=== PATIENT | male | born 1940 | race Caucasian/White ===

== ENCOUNTER 2016-07-07 21:26 | Observation (INO) | payer MEDICARE, OTHER ==
[~2016-07-07] VITALS: Ht 168.9 cm; Wt 67.4 kg
--- NOTE | ~2016-07-07 | HEMODYNAMI ---
PATIENT:ISA MCCARTHY MEDICAL RECORD: [id number] : 38 [facility] [id number] ADMISSION DATE: 07/07/16 Generatedon:07/08/201612:56 Patient name: ISA MCCARTHY Patient #: [id number] SSN: : 1940 Date of study: 07/08/2016 Page: Of Hemodynamic Procedure Report Patient Data Patient Demographics Procedure consent was obtained First Name: ISA Gender: Male Last Name: FABIO : 1940 Middle Initial: W Age: 75 year(s) Patient #: [id number] Race: Unknown Additional ID: [id number] Contact details Address: [address] [place] [address] State: [place] City: [place] Zip code: [address] Past Medical History Allergies Allergen Reaction Date Comments Reported Other 07/08/2016 morphine,sulfa,doxcycline allergy Admission Admission Data Admission Date: 07/07/2016 Admission Time: 23:47 Admit Source: Other Insurance Payor: Private Room #: D.2121 health insurance, Medicare Height (in.): 66.5 BSA: 1.77 (m2) Height (cm.): 168.91 BMI: 23.62 (kg/m2) Weight (lbs.): 148.59 Weight (kg.): 67.4 Lab Results Lab Result Date: 07/08/2016 Lab Result Time: 11:36 Biochemistry Name Units Result Min Max Creatinine mg/dl 1.5 --(----)-* 0.6 1.3 CBC Name Units Result Min Max Hemoglobin g/dl 16.1 --(--*-)-- 13.5 17.5 Procedure Procedure Types Cath Procedure Diagnostic Procedure [facility] w/Coronaries Procedure Description Procedure Date Procedure Date: 07/08/2016 Procedure Start Time: 12:41 Procedure End Time: 12:51 Procedure Staff Name Function Zbigniew Uriostegui MD Performing Physician Merrill Ling RT Scrub Matthew Rodriguez RN Nurse Jacques Whitman RN Hadoop Infrastructure Architect Manish Valladares RT Monitor Procedure Data Cath Procedure Fluoroscopy Diagnostic fluoroscopy Total fluoroscopy Time: 1.3 time: 1.3 min min Diagnostic fluoroscopy Total fluoroscopy dose: 422 dose: 422 mGy mGy Contrast Material Contrast Material Type Amount (ml) Isovue 300 67 Entry Location Entry Primary Successful Side Size Upsize Upsize Entry Closure Succes sful Closure Location (Fr) 1 (Fr) 2 (Fr) Remarks Device Remarks Femoral Right 5 Fr Exoseal artery Estimated blood loss: 5 ml Diagnostic catheters Device Type Used For End Catheter Placement Cordis 5Fr JL 4.0 Procedure Catheter (MP) Cordis 5Fr 3DRC Catheter Procedure (MP) Cordis 5Fr Pigtail Procedure Catheter (MP) Procedure Medications Medication Administration Route Dosage Oxygen NC 2 l/min Lidocaine 2% added to field 20 Heparin Flush Bag added to field 2 bags (1000units/500ml NS) 0.9% NaCl I.V. 100 ml/hr Versed I.V. 1 mg Fentanyl I.V. 50 mcg Versed I.V. 0.5 mg Fentanyl I.V. 25 mcg Hemodynamics Rest BSA: 1.77 (m2) HGB: 16.1 (g/dl) O2 Consumption: Estimated: 212.43 (ml/min) O2 Co nsumption indexed: Estimated:120.02 (ml/min/m) Heart Rate: 84 (bpm) Pressure Samples Time Site Value (mmHg) Purpose Heart Use Rate(bpm) 12:47 LV 134/6,12 Snapshot 76 12:47 AO 136/55(89) Pullback 77 12:47 LV 135/11,13 Pullback 77 Gradients Valve Time Site 1 Site 2 Mean SEP/DFP Peak To Heart Use (mmHg) (sec/min) Peak Rate (mmHg) (bpm) Aortic 12:47 LV AO 0 10 0 77 135/11,13 136/55(89) Calculations Valve P-P Mean Valve Index Valve Source Name Gradient Area Flow (cm2) Aortic 0 0 0 0 Snapshots Pre Cath Intra NCS Post Cath Vital Signs Time Heart Resp SPO2 etCO2 NU5szch NIBP (mmHg) Rhythm Pain Sedation Rate (ipm) (%) (mmHg) (mmHg) Status Level (bpm) 12:13:42 76 19 94 0 0 173/80(137) NSR 0 (11) 10(A) , No pain 12:18:06 81 18 94 0 0 173/84(130) NSR 0 (11) 10(A) , No pain 12:22:32 77 15 96 0 0 167/86(131) NSR 0 (11) 10(A) , No pain 12:26:57 81 17 97 0 0 169/79(133) NSR 0 (11) 10(A) , No pain 12:31:23 76 17 97 0 0 153/74(124) NSR 0 (11) 10(A) , No pain 12:35:45 72 18 96 0 0 142/69(107) NSR 0 (11) 10(A) , No pain 12:40:03 72 18 96 0 0 143/68(116) NSR 0 (11) 9(A) , No pain 12:44:19 74 22 96 0 0 140/77(106) NSR 0 (11) 9(A) , No pain 12:48:37 76 25 96 0 0 135/70(110) NSR 0 (11) 10(A) , No pain Medications Time Medication Route Dose Verified Delivered Reason Notes Effe ctiveness by by 12:27:40 Oxygen NC 2 Zbigniew Buffie used for l/min St. Claudio Rodriguez RN procedure 12:27:50 Lidocaine 2% added 20ml Zbigniew Zbigniew for local to vial [facility] anesthetic field MD EUGENE 12:27:56 Heparin Flush added 2 Zbigniew Zbigniew used for Bag to bags [facility] procedure (1000units/500ml field MD EUGENE NS) 12:28:06 0.9% NaCl I.V. 100 Zbigniew Buffie Per ml/hr [facility]. Claudio Rodriguez RN physician 12:39:18 Versed I.V. 1 mg Zbigniew Buffie for [facility]. Claudio Rodriguez RN sedation 12:39:24 Fentanyl I.V. 50 Zbigniew Buffie for mcg [facility] Claudio Rodriguez RN sedation 12:43:48 Versed I.V. 0.5 Zbigniew Buffie for mg [facility] Claudio Rodriguez RN sedation 12:43:52 Fentanyl I.V. 25 Zbigniew Levonie for mcg [facility] Claudio Rodriguez RN sedation Procedure Log Time Note 11:15:24 Jacques Whitman RN sent for patient. Start room use. 11:56:26 Informed consent obtained and on chart 11:57:13 Time tracking: Regular hours 11:57:19 Plan of Care:Hemodynamics will remain stable., Cardiac rhythm will remain stable., Comfort level will be maintained., Respiratory function will remain adequate., Patient/ family verbilizes understanding of procedure., Procedure tolerated without complication., Recovers from procedure without complications.. 12:04:27 Admit Source: Other 12:04:30 Patient Weight : 148.59 lbs 12:04:36 Patient Height : 66.5 inches 12:05:35 Patient received from Med II to CCL 2 Alert and oriented. Tansferred to table in Supine position. 12:05:37 Warm blankets applied, and tori hugger turned on for patient comfort. 12:05:37 Correct patient and procedure confirmed by team. 12:05:38 ECG and BP/O2 sat monitors applied to patient. 12:12:27 Vital chart was started 12:23:41 H&P Date Dictated: 07/07/2016 Within 30 days and on chart.. 12:23:43 Pre-procedure instructions explained to patient. 12:23:43 Pre-op teaching completed and patient verbalized understanding. 12:23:45 Family in patients room. 12:23:46 Patient NPO since Midnight. 12:24:13 Patient allergic to Other allergymorphine,sulfa,doxcycline 12:24:57 Is the patient allergic to Iodine/contrast media? No. 12:24:58 Is patient on blood thinner?Yes 12:25:03 ACC The patient was administered the following blood thiners within the last 24 hours: ACCPradaxa 12:25:04 Patient diabetic? Yes. 12:25:05 If diabetic: On Metformin? Yes 12:25:08 If on Metformin: Last Dose? 07/07/2016 12:25:11 Previous problem with sedation/anesthesia? No ? 12:25:12 Snore? Yes 12:25:13 Sleep apnea? No 12:25:14 Deviated septum? No 12:25:15 Opens mouth fully? Yes 12:25:16 Sticks out tongue? Yes 12:25:17 Airway obstruction? No ? 12:25:21 Dentures? Yes In tight 12:25:25 Pre procedure: right dorsailis pedis pulse 1+ Palpable, but thready & weak; easily obliterated 12:25:28 Patient pain scale 0/10 ?. 12:25:32 IV patent on arrival in right hand with 0.9% NaCl at [facility]. 12:: Lab Result : Hemoglobin 16.1 g/dl 12:: Lab Result : Creatinine 1.5 mg/dl 12::30 Lab results completed and on chart. 12::33 Right groin area was prepped with chlora-prep and draped in sterile fashion 12:: Alarms reviewed by R. N. 12:: Sharps counted by scrub and verified by R.N. 12::38 Use device set Femoral Dx 12::39 Tegaderm 4 x 4 opened to sterile field. 12::40 Acist Manifold opened to sterile field. 12::40 Acist Hand Control opened to sterile field. 12::41 Acist Syringe opened to sterile field. 12::42 Bag Decanter opened to sterile field. 12::42 Cardinal Cath Pack opened to sterile field. 12::43 Terumo 5Fr [place] Sheath opened to sterile field. 12::44 St Alexandru 260cm J .035 wire opened to sterile field. 12::44 Cordis Infinity 5Fr Multipack catheter opened to sterile field. 12::53 Baseline sample Acquired. 12::55 Rhythm: sinus rhythm 12::57 Full Disclosure recording started 12:27:00 Physician paged 12:27:40 Oxygen 2 l/min NC was given by Matthew Rodriguez RN; used for procedure; 12::50 Lidocaine 2% 20ml vial added to field was given by Zbigniew Uriostegui MD; for local anesthetic; 12:27:56 Heparin Flush Bag (1000units/500ml NS) 2 bags added to field was given by Zbigniew Uriostegui MD; used for procedure; 12:28:06 0.9% NaCl 100 ml/hr I.V. was given by Matthew Rodriguez RN; Per physician; 12::34 Physician arrived 12::34 --------ALL STOP TIME OUT------ 12:37:35 Final Timeout: patient, procedure, and site verified with staff and physician. All members of the team are in agreement. 12:37:37 Right groin site verified by team. 12:37:40 Physical assessment completed. ASA score P 3 - A patient with severe systemic disease as per Zbigniew Uriostegui MD. 12:37:44 Sedation plan: IV Moderate Sedation Versed, Fentanyl 12:39:18 Versed 1 mg I.V. was given by Matthew Rodriguez RN; for sedation; 12:39:24 Fentanyl 50 mcg I.V. was given by Matthew Rodriguez RN; for sedation; 12::44 Procedure started. 12:41:46 Local anesthetic to right femoral artery with Lidocaine 2% by Zbigniew Uriostegui MD.INITIAL ACCESS ONLY 12:41:59 A 5 Fr sheath was inserted into the Right Femoral artery 12:43:19 A Cordis 5Fr JL 4.0 Catheter (MP) was advanced over the wire and used for Procedure. 12:43:47 LCA angiography performed. 12:43:48 Versed 0.5 mg I.V. was given by Matthew Rodriguez RN; for sedation; 12:43:52 Fentanyl 25 mcg I.V. was given by Matthew Rodriguez RN; for sedation; 12:44:42 Catheter exchanged over wire. 12:44:48 A Cordis 5Fr 3DRC Catheter (MP) was advanced over the wire and used for Procedure. 12:45:47 RCA angiography performed. 12:46:00 Catheter exchanged over wire. 12:46:09 A Cordis 5Fr Pigtail Catheter (MP) was advanced over the wire and used for Procedure. 12:47:20 LV gram done using GOMEZ 12:47:25 Injector settings: Ml/sec: 10, Volume: 20, 12:47:34 EF : 55 % 12:48:00 Cordis 5Fr Exoseal opened to sterile field. 12:48:19 Sheath removed intact; hemostasis achieved with Exoseal to the Right Femoral artery. 12:48:21 Procedure ended.(Physican Out) 12:48:47 Fluoroscopy time 01.30 minutes. 12:49:00 Flurop Dose total: 422 12:49:00 Fluoroscopy dose: 422 mGy 12:49:04 Contrast amount:Isovue 300 67ml. 12:49:06 Sharps counted by scrub and verified by R.N. 12:49:09 Insertion/operative site no bleeding no hematoma. 12:49:18 Post-op/insertion site Right Femoral artery dressed using a 4 x 4 and Tegaderm. 12:49:29 Post right femoral artery:stable, soft, clean and dry 12:49:33 Post Procedure Pulses reassessed and unchanged 12:49:36 Post-procedure physical assessment completed. ASA score P 3 - A patient with severe systemic disease as per Zbigniew Uriostegui MD. 12:49:38 Post procedure rhythm: unchanged. 12:49:41 Estimated blood loss: 5 ml 12:49:48 Post procedure instruction explained to patient.Patient verbalizes understanding. 12:49:49 Patient needs reinforcement of post procedure teaching. 12:50:38 Procedure and supply charges have been captured, reviewed, submitted and are correct. 12:51:14 Vital chart was stopped 12:51:15 See physician's report for complete and final results. 12:51:17 Report given to PCU. 12:51:19 Patient transfered to PCU with Stretcher. 12:51:22 Procedure ended. 12:51:22 Full Disclosure recording stopped 12:52:00 End room use (Document Last) 12:53:05 Insurance Payor : Private health insurance, Medicare Device Usage Item Name Manufacture Quantity Catalog Hospital Part Current Minimal Lo t# / Number Charge Number Stock Stock Serial# Code Tegaderm 1 [id number] 193458 [id number] 5 4 x 4 Acist Acist 1 63251 519388 635074 601160 5 Manifold Medical Systems Inc Acist Acist 1 69106 318741 008276 192001 5 Hand Medical Control Systems Inc Acist Acist 1 20078 896344 458765 111561 20 Syringe Medical Systems Inc Bag Microtek 1 2001S 097062 76075 540822 5 Decanter Medical Inc. Cardinal Cardinal 1 [id number] 857411 46133 901605 5 Cath Pack Health Terumo Terumo 1 [id number] 864869 251223 929055 [address] Alexandru 1 095408 589602 471198 066485 30 260cm J .035 wire Cordis Cardinal 1 [id number] 571358 87036 417989 30 [employer] 5Fr Multipack catheter Cordis Cardinal 1 234972 5 5Fr JL Health 4.0 Catheter (MP) Cordis Cardinal 1 [id number] 5 5Fr [facility] Health Catheter (MP) Cordis Cardinal 1 624596 5 5Fr Health Pigtail Catheter (MP) Cordis Cardinal 1 EX500 305007 643518 036145 10 5Fr Health Exoseal Signature Audit [place] Stage Time Signature Unsigned Intra-Procedure 07/08/2016 Manish Valladares 12:56:49 PM RT(R) Signatures Monitor : Manish Valladares RT Signature : Date : Time : [id number] [place] [address]
[~2016-07-07 21:26] MED LIST: FLOMAX0.4 MG PO; GLIMEPIRIDE2 MG PO; GLUCOPHAGE500 MG PO; METOPROLOL TART50 MG PO; NORVASC10 MG PO; PRADAXA150 MG PO; PRILOSEC20 MG PO; ZOLOFT100 MG PO
[2016-07-07 21:45] LABS: BASOPHILS 0.2 % (0.0-2.0); EOSINOPHILS 1.9 % (0-7); HEMATOCRIT 45.8 % (42.0-54.0); HEMOGLOBIN 16.1 g/dL (13.5-17.5); IMMATURE GRANULOCYTES 2.1 % (0-5); LYMPHOCYTES 28.7 % (15-50); MCH 32.3 pg (26.0-34.0); MCHC 35.2 g/dL (31.0-37.0); MEAN PLATELET VOLUME 9.9 fL (7.4-10.4); MONOCYTES 8.7 % (2-11); NEUTROPHILS 58.4 % (40-80); RBC 4.98 10x6/uL (4.20-6.10); RDW 13.5 % (11.5-14.5); WBC 10.3 10x3/uL (4.8-10.8)
[2016-07-07 21:47] LABS: PLATELET COUNT 245 10x3/uL (130-400)
[2016-07-07 21:59] LABS: ALBUMIN 4.3 g/dL (3.4-5.0); ALKALINE PHOSPHATASE 55 U/L (46-116); ALT (SGPT) 55 U/L (10-68); BILIRUBIN - TOTAL 0.31 mg/dL (0.2-1.3); CALC OSMOLALITY 278 mosm/kg (275-300); CALCIUM 9.2 mg/dL (8.5-10.1); CARBON DIOXIDE 26.2 mmol/L (21.0-32.0); CHLORIDE - SERUM 100 mmol/L (98-107); CREATININE - SERUM 1.5 mg/dL (0.6-1.3); POTASSIUM - SERUM 3.9 mmol/L (3.5-5.1); PROTEIN - SERUM 8.1 g/dL (6.4-8.2); SODIUM 137 mmol/L (136-145); UREA NITROGEN 15 mg/dL (7-18); eGFR NON AFRICAN AMERICAN 48 mL/min (90-120)
[2016-07-07 22:00] LABS: GLUCOSE 165 mg/dL (74-106)
[2016-07-07 22:10] LABS: CHOL - HDL RATIO 1.6 ratio (2.3-4.9); CHOLESTEROL, TOTAL 96 mg/dL (0-200); CKMB 0.7 U/L (0.0-3.6); CREATINE KINASE 60 UL (21-232); HDL CHOLESTEROL 59 mg/dL (32-96); TRIGLYCERIDE 279 mg/dL (30-200)
[2016-07-07 22:11] LABS: TROPONIN-I < 0.017 ng/mL (0.000-0.060)
[2016-07-07 22:30] LABS: MAGNESIUM - SERUM 1.3 mg/dL (1.8-2.4)
[2016-07-08] VITALS: BP 154/79
--- NOTE | 2016-07-08 00:45 | NUR ---
PT ADMITTED FROM ER TO ROOM 2120 VIA WHEELCHAIR. ACCOMPANIED BY SPOUSE. ALERT/ORIENTED. VOICING NO PAIN OR DISCOMFORT AT THIS TIME. TELEMETRY STARTED, PT IS 59 SR. ADMISSION ASSESSMENT AND HISTORY REVIEW COMPLETED.
[2016-07-08 02:56] VITALS: BP 154/79; Ht 168.9 cm; Wt 67.4 kg
[2016-07-08 04:00] VITALS: BP 118/59
[2016-07-08 06:35] LABS: CALC OSMOLALITY 280 mosm/kg (275-300); CALCIUM 9.5 mg/dL (8.5-10.1); CARBON DIOXIDE 24.4 mmol/L (21.0-32.0); CHLORIDE - SERUM 103 mmol/L (98-107); CKMB 0.9 U/L (0.0-3.6); CREATINE KINASE 61 UL (21-232); CREATININE - SERUM 1.2 mg/dL (0.6-1.3); GLUCOSE 142 mg/dL (74-106); POTASSIUM - SERUM 4.1 mmol/L (3.5-5.1); SODIUM 140 mmol/L (136-145); UREA NITROGEN 13 mg/dL (7-18); eGFR NON AFRICAN AMERICAN 63 mL/min (90-120)
[2016-07-08 07:22] LABS: TROPONIN-I 0.109 ng/mL (0.000-0.060)
[2016-07-08 07:26] VITALS: BP 144/102
[2016-07-08] MEDS ORDERED: SAW PALMETTO450 MG PO (10:25)
[2016-07-08] MEDS ORDERED: PROZAC20 MG PO (10:26)
[2016-07-08] MEDS ORDERED: CARAFATE1 G PO (10:26)
--- NOTE | 2016-07-08 10:27 | NUR ---
RATIONALE FOR SCD'S EXPLAINED. REFUSES SCD'S AT THIS TIME
--- NOTE | 2016-07-08 10:42 | NUR ---
CONSENTS OBTAINED AND PLACED IN CHART. PT RESTING QUIETLY WITH FAMILY AT BEDSIDE. RR NONLABORED ON RA. PT DENIES ANY CURRENT PAIN OR NEEDS AT THIS TIME. CL IN REACH. WILL CPOC.
[2016-07-08 12:04] VITALS: BP 134/69
--- NOTE | 2016-07-08 13:08 | NUR ---
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 PERIPHERAL PULSES INTACT. DRSG TO R.DILLONIN CDI. NO S/S OF BLEEDING OR HEMATOMA NOTED. VSS. CL IN REACH, PT WILL REMAIN LYING FLAT FOR 2 HOURS AND VERBALIZED UNDERSTANDING. NO FURTHER NEEDS AT THIS TIME. WILL CPOC.
--- NOTE | 2016-07-08 14:25 | NUR ---
PT RESTING QUIETLY LYING FLAT IN BED. RR NONLABORED ON RA. VSS. RNEREIDA DRSG CDI NO S/S OF BLEEDING OR HEMATOMA NOTED. WILL CPOC.
--- NOTE | 2016-07-08 14:43 | NUR ---
D/C PTS R.HAND PIV WITH CATHETER TIP FULLY INTACT. PT LYING FLAT STILL RESTING COMFORTABLY. PT WILL BE ABLE TO SIT UP AND D/C AT 1500. FAMILY AT BEDSIDE PERIPHERAL PULSES INTACT. NO S/S OF BLEEDING OR HEMATOMA TO R.GROIN. WILL CPOC.
--- NOTE | 2016-07-08 15:04 | NUR ---
PT ABLE TO SIT UP NOW. ASSISTED HIM SITTING UP AND PROVIDED HIM WITH COFFEE REQUESTED. DISCHARGE TEACHING DONE AND PAPERS SIGNED. PERIPHERAL PULSES INTACT. R.GROIN DRSG CDI, NO S/S OF HEMATOMA OR BLEEDING NOTED. PT HAS VOIDED AND IS READY TO BE DISCHARGED. FAMILY AT BEDSIDE. WILL CPOC.
--- NOTE | 2016-07-11 13:25 | OP ---
PATIENT NAME: ISA MCCARTHY MEDICAL RECORD: [id number] :38 LOCATION:D.M2 D.1 ADMISSION DATE:07/07/16 SURGEON: DOMENIC GE MD DATE OF OPERATION: 07/08/2016 PROCEDURE: Left heart catheterization, selective coronary angiography, right femoral approach. CATHETERS: A 5-[place] Island[place] sheath, 5/4 left and right K[place]um, 5/4 pig. The procedure was well tolerated and the patient returned to [place]. Sheath removed. ExoSeal device placed. FINDINGS: Left ventriculography in 30-degree GOMEZ view: Normal wall motion and normal systolic function. CORONARY ANATOMY: Left main: Left main is free of disease. LAD: LAD in previous stenting is widely patent and no progression of lower b[place] disease. CIRCUMFLEX: Free of disease. RIGHT CORONARY ARTERY: Dominant artery is PDA, free of disease. IMPRESSION: Normal systolic function. Normal coronary anatomy. No evidence of restenosis. No progression of lower brule disease. TRANSINT:[id number] Voice Confirmation ID: [id number] DOCUMENT ID: [id number] DOMENIC GE MD at 1325 CC: [id number] DICTATION DATE: 07/08/16 1257 KENO ATTENDANT: 07/08/16 2131 [place] IN 07/08/16 [facility] [address] [place] [address]
--- NOTE | 2016-07-11 13:25 | CN ---
PATIENT NAME:JOHNATHON MCCARTHY MEDICAL RECORD: [id number] : 38 LOCATION:. D.2121 ADMIT DATE: 07/07/16 ACCOUNT: [id number] CONSULTING PHYSICIAN: DOMENIC GE MD REFERRING PHYSICIAN: ANTONIO HAZEL MD DATE OF CONSULTATION: 07/08/2016 HISTORY OF PRESENT ILLNESS: Johnathon Mccarthy is a 75-year-old gentleman with a known cardiovascular history, has history of coronary artery disease, status post intervention, and has history of sick sinus syndrome, status post pacemaker placement, had onset of chest burning and tightness yesterday, mild dyspnea, more of nausea. We are asked to see him concerning his cardiovscular status. He is currently pain free. Enzymes are negative. PAST MEDICAL HISTORY: 1. History of sick sinus syndrome, status post pacemaker placement as well as paroxysmal Afib. 2. Hypertension. 3. Diabetes mellitus. MEDICATIONS: Include metformin 500 mg b.i.d., Amaryl 2 mg daily, Prilosec 20 b.i.d., Zoloft 150 daily, metoprolol 50 b.i.d., amlodipine 10 daily, and Pradaxa 150 mg b.i.d. ALLERGIES: SULFA, MORPHINE, AND DOXYCYCLINE. SOCIAL HISTORY: , lives here in [place]. Nonsmoker. Able to take care of all his ADLs. No set exercise program. REVIEW OF SYSTEMS: The patient reports easy bruising but reports no swollen glands. The patient reports no fever, no night sweats, no significant weight gain, no significant weight loss. No significant exercise tolerance. The patient reports no dry eyes, no irritation, no vision change. Patient reports no difficulty hearing and no ear pain. Patient reports no frequent nose bleeds or nose and sinus problems. Patient reports on arm pain on exertion. No shortness of breath while lying down. No history of heart murmur. Patient reports no cough, no wheezing or coughing up blood. Patient reports no abdominal pain, no vomiting. Normal appetite. No diarrhea and not vomiting blood. No nausea and no constipation. Patient reports no incontinence. No difficulty urinating. No hematuria. No increased frequency. Patient reports no muscle aches. No weakness, no arthralgias, no back pain. No swelling of the extremities. Patient reports no abnormal mole, no jaundice, no rashes. Reports no loss of consciousness. No weakness and no numbness. No seizures, dizziness, or headaches. The patient reports no depression, no sleep disturbance, feeling safe in a relationship and no alcohol abuse. Patient reports on fatigue. Reports no runny nose or sinus pressure. No itching, no hives, and no frequent sneezing. PHYSICAL EXAMINATION: GENERAL: Pleasant gentleman who appears stated age. VITAL SIGNS: Blood pressure 144/102, pulse 69 and regular. HEENT: Normocephalic, atraumatic. NECK: No JVD or bruit. HEART: Regular. LUNGS: Clemente clear. CONSULT REPORT [id number] FABIOJOHNATHON Kit ABDOMEN: Soft, nontender. EXTREMITIES: Pulse 2+ and equal with no edema. NEUROLOGIC: Grossly intact. DIAGNOSTIC DATA: ECG shows V-paced. IMPRESSION: Acute coronary syndrome. Cardiac enzymes negative at this point. PLAN: We will plan for diagnostic angiography with intervention based on above. TRANSINT:[id number] Voice Confirmation ID: [id number] DOCUMENT ID: [id number] DOMENIC GE MD at 1325 CC: [id number] DICTATION DATE: 07/08/16 0847 METAL CHECKER: 07/08/162003 DIS IN 07/08/16 [facility] [address] [place] [address]
--- NOTE | 2016-09-01 14:36 | DS ---
PATIENT:ISA MCCARTHY :38 MEDICAL RECORD: [id number] DISCHARGE SUMMARY ADMISSION DATE: 07/07/16 DISCHARGE DATE: 07/08/16 DISCHARGE DIAGNOSES: 1. Chest pain. 2. Coronary artery disease, status post intervention. 3. Hypertension. 4. Atrial fibrillation. 5. Obstructive pulmonary disease. BRIEF HISTORY AND HOSPITAL COURSE: Admitted with chest pains typical of angina, underwent diagnostic angiography, which showed widely patent stents. No progression of moapa disease. Discharged home in good condition. DIET: As tolerated. ACTIVITY: As tolerated. FOLLOWUP: Regularly scheduled. TRANSINT:[id number] Voice Confirmation ID: [id number] DOCUMENT ID: [id number] DOMENIC GE MD at 1436 CC: [id number] DICTATION DATE: 08/30/16 142 KEYBOARD SPECIALIST: 08/31/16 0345 DIS IN 07/08/16 [facility] [address] [place] [address]
== END 2016-07-08 16:20 | disposition home or self-care (01) ==
LOC: D.ER 21:26 → D.M2 23:47 → OBSVTIME 23:47 → D.M2 23:47
PROVIDERS: Emergency Medicine; ADMIT Family Medicine
DX: R07.9 Chest pain, unspecified (principal); I25.10 Atherosclerotic heart disease of native coronary artery without angina pectoris; Z95.5 Presence of coronary angioplasty implant and graft; Z95.0 Presence of cardiac pacemaker; I10 Essential (primary) hypertension; G47.33 Obstructive sleep apnea (adult) (pediatric); Z86.73 Personal history of transient ischemic attack (TIA), and cerebral infarction without residual deficits; E11.9 Type 2 diabetes mellitus without complications; I48.91 Unspecified atrial fibrillation; E78.5 Hyperlipidemia, unspecified; K21.9 Gastro-esophageal reflux disease without esophagitis; Z86.010 Personal history of colon polyps; G25.81 Restless legs syndrome; N40.0 Benign prostatic hyperplasia without lower urinary tract symptoms

== ENCOUNTER → 2017-05-03 12:44 | Outpatient (CLI) | payer MEDICARE, OTHER ==
[2016-07-08 02:56] VITALS: BMI 23.6
[~2017-05-03 12:44] MED LIST changes: +CARAFATE1 G PO; +PROZAC20 MG PO; +SAW PALMETTO450 MG PO
== END | disposition home or self-care (01) ==
LOC: D.CT 12:44
DX: M25.552 Pain in left hip (principal); M25.551 Pain in right hip

== ENCOUNTER 2018-02-13 11:47 | Inpatient (IN) | payer MEDICARE, OTHER ==
[~2018-02-13] VITALS: Ht 168.9 cm; Wt 75.3 kg
--- NOTE | ~2018-02-13 | EC ---
PATIENT:ISA MCCARTHY DATE OF SERVICE: 02/13/18 SEX: M MEDICAL RECORD: [id number] DATE OF : 38 LOCATION:D.M2 D.212 AGE OF PATIENT: 77 ADMISSION DATE: 02/13/18 REFERRING PHYSICIAN: INTERPRETING PHYSICIAN: CATINA LAZO MD ECHOCARDIOGRAM REPORT ECHO CHARGES 4 ECHO COMPLETE Date: 02/15/18 CLINICAL DIAGNOSIS: CHF ECHOCARDIOGRAPHIC MEASUREMENTS (adult normal given) AC root (d.<3.7cm) 3.6 cm LV Septum d (<1.2 cm> 1.1 cm Valve Excursion 1.8 cm LV Septum (systole) 1.2 cm Left Atria (s.<4.0cm> 2.6 cm LVPW d(<1.2cm) 1.1 cm RV (d.<2.3cm) 4.3 cm LVPW (sytole) 1.4 cm LV diastole(<5.6CM) 4.8 cm MV E-F(>70mm/sec) cm LV systole 3.4 cm LVOT Diameter 2.0 cm MV exc.(>10mm) 1.6 cm Est.ejection fraction (50-75%) % DOPPLER: LVIT cm/sec A 50.0 cm/sec E 92.0 cm/sec LA cm/sec RVSP 40 mmHg LVOT 74 cm/sec AOP1/2T m/s Asc. Ao 124 cm/sec RVOT 78 cm/sec RA cm/sec PA 101 cm/sec AV Gradient Peak 6.16 mmHg AV Mean 3.37 mmHg AV Area 1.9 cm MV Gradient Peak 3.49 mmHg MV Mean 1.11 mmHg MV Area cm COMMENTS: Cardiothoracic Anesthesia Technician: Audra RAO Senior Software Architect: 1 Dr. Lazo TAPE# PACS Pericardial Effusion N DATE OF SERVICE: 02/15/2018 FINDINGS: 1. Left ventricular chamber size is within normal limits. Left ventricular systolic function is normal. Overall ejection fraction is estimated at 55%. 2. Left atrium is within normal limits at 2.6 cm. Right atrium and right ventricle chamber sizes are mildly dilated. 3. Valvular structures have normal structure and motion. 4. Doppler interrogation reveals mild mitral regurgitation and mild tricuspid regurgitation. No other valvular insufficiency or stenosis. Pulmonary systolic ECHOCARDIOGRAM REPORT [id number] ISA MCCARTHY pressure is normal, estimated at 40 mmHg. 5. No evidence of pericardial effusion or left ventricular thrombus. TRANSINT:[id number] Voice Confirmation ID: [id number] DOCUMENT ID: [id number] CATINA LAZO MD at 1950 CC: [id number] DICTATION DATE: 02/15/18 1618 TALENT ACQUISITION PARTNER: 02/15/18 1712 ADM IN [facility] [address] [place] [id number]
--- NOTE | ~2018-02-13 | HEMODYNAMI ---
PATIENT:ISA MCCARTHY MEDICAL RECORD: [id number] : 38 LOCATION:[facility] D.2120 ADMISSION DATE: 02/13/18 Generatedon:02/16/201815:09 Patient name: ISA MCCARTHY Patient #: [id number] SSN: : 1940 Date of study: 02/16/2018 Page: Of Hemodynamic Procedure Report Patient Data Patient Demographics Procedure consent was obtained First Name: ISA Gender: Male Last Name: FABIO : 1940 Middle Initial: W Age: 77 year(s) Patient #: [id number] Race: Unknown Additional ID: [id number] Contact details [address]: [address] [place] [address] State: [place] City: [place] Zip code: [address] Past Medical History Allergies Allergen Reaction Date Comments Reported Other 07/08/2016 morphine,sulfa,doxcycline allergy Other 02/16/2018 Sulfa, Morphine, allergy Doxycycline. Admission Admission Data Admission Date: 02/13/2018 Admission Time: 11:47 Admit Source: Other Room #: D.2120 Procedure Procedure Types Cath Procedure Diagnostic Procedure Cardioversion External Procedure Description Procedure Date Procedure Date: 02/16/2018 Procedure Start Time: 14:52 Procedure End Time: 15:08 Procedure Staff Name Function Dimitri Lazo MD Performing Physician Manish Valladares RT Monitor Merrill Ling RT Shuttle Hand Matthew Rodriguez RN Nurse Procedure Data Cath Procedure Fluoroscopy Diagnostic fluoroscopy Total fluoroscopy Time: 0 time: 0 min min Diagnostic fluoroscopy Total fluoroscopy dose: 0 dose: 0 mGy mGy Contrast Material Contrast Material Type Amount (ml) Isovue 300 0 Estimated blood loss: 0 ml Procedure Complications No complications Procedure Medications Medication Administration Route Dosage Oxygen etCO2 Nasal cannula 2 l/min Versed I.V. 2 mg Fentanyl I.V. 50 mcg Versed I.V. 1.5 mg Hemodynamics Rest Heart Rate: 110 (bpm) Snapshots Pre Cath Intra NCS Post Cath Vital Signs Time Heart Resp SPO2 etCO2 NIBP (mmHg) Rhythm Pain Sedation Rate (ipm) (%) (mmHg) Status Level (bpm) 14:46:31 109 17 96 23.9 145/78(113) A-Fib 0 (11) 10(A) , No pain 14:51:35 111 15 95 23.9 138/82(101) A-Fib 0 (11) 9(A) , No pain 14:56:39 73 13 98 12.7 135/86(105) NSR 0 (11) 10(A) , No pain 15:00:56 71 14 97 10.4 132/80(116) NSR 0 (11) 10(A) , No pain 15:05:14 82 14 97 13.4 144/70(110) NSR 0 (11) 10(A) , No pain Medications Time Medication Route Dose Verified Delivered Reason Notes Effective ness by by 14:47:17 Oxygen etCO2 2 Dimitri Castro used for Nasal l/min Clifton Rodriguez RN procedure cannula 14:47:32 Versed I.V. 2 mg Dimitri Castro for Clifton Rodriguez RN sedation 14:47:38 Fentanyl I.V. 50 Dimitri Dos Santosie for mcg Clifton Rodriguez RN sedation 14:51:45 Versed I.V. 1.5 Dimitri Castro for mg Clifton Rodriguez RN sedation Procedure Log Time Note 13:58:57 Informed consent obtained and on chart 14:03:32 Admit Source: Other 14:03:57 Time tracking: Regular hours (M-F 7:00 - 5:00) 14:04:01 Plan of Care:Hemodynamics will remain stable., Cardiac rhythm will remain stable., Comfort level will be maintained., Respiratory function will remain adequate., Patient/ family verbilizes understanding of procedure., Procedure tolerated without complication., Recovers from procedure without complications.. 14:04:11 H&P Date Dictated: 02/13/2018 Within 30 days and on chart.. 14:04:16 Lab results completed and on chart. 14:05:10 Manish NOE(R) sent for patient. Start room use. 14:19:50 Patient arrived from [facility] to [facility] 3. Patient remains on bed/stretcher for procedure. 14:19:51 Warm blankets applied, and tori hugger turned on for patient comfort. 14:19:52 Correct patient and procedure confirmed by team. 14:19:52 ECG and BP/O2 sat monitors applied to patient. 14:19:55 Pre-procedure instructions explained to patient. 14:19:55 Pre-op teaching completed and patient verbalized understanding. 14:19:56 Family in patients room. 14:25:43 Patient NPO since Breakfast. 14:26:08 Patient allergic to Other allergySulfa, Morphine, Doxycycline. 14:26:09 Is the patient allergic to Iodine/contrast media? No. 14:26:10 Is patient on blood thinner?No 14:26:11 Patient diabetic? Yes. 14:26:12 If diabetic: On Metformin? Yes 14:26:14 If on Metformin: Last Dose? 02/16/2018 14:26:16 Previous problem with sedation/anesthesia? No ? 14:26:17 Snore? Yes 14:26:20 Sleep apnea? No 14:26:21 Deviated septum? No 14:26:22 Opens mouth fully? Yes 14:26:23 Sticks out tongue? Yes 14:26:27 Airway obstruction? Yes copd 14:26:42 Dentures? No out 14:26:49 Patient pain scale 0/10 ?. 14:27:02 Baseline sample Acquired. 14:27:08 Rhythm: atrial fibrillation 14:31:13 IV left hand D/C'd due to infiltration. 14:40:18 IV CATHETER 22g opened to sterile field. 14:40:36 IV started by Matthew Rodriguez RN inleft forearm with a 22 gauge IV catheter with 0.9% NaCl at KVO. 14:40:39 Alarms reviewed by Lorie Urban 14:40:47 Quick Combo opened to sterile field. 14:41:21 [employer] inside sales account representative Giacomo Oreilly present for procedure. 14:41:35 Quick combo pads placed on patients chest and back. 14:41:42 Physician arrived 14:41:42 --------ALL STOP TIME OUT------ 14:41:43 Final Timeout: patient, procedure, and site verified with staff and physician. All members of the team are in agreement. 14:41:49 Physical assessment completed. ASA score P 3 - A patient with severe systemic disease as per Dimitri Lazo MD. 14:41:51 Sedation plan: IV Moderate Sedation Medication:Versed, Fentanyl 14:47:17 Oxygen 2 l/min etCO2 Nasal cannula was administered by Matthew Rodriguez RN; used for procedure; 14:47:18 Vital chart was started 14:47:32 Versed 2 mg I.V. was administered by Matthew Rodriguez RN; for sedation; 14:47:38 Fentanyl 50 mcg I.V. was administered by Matthew Rodriguez RN; for sedation; 14:51:45 Versed 1.5 mg I.V. was administered by Matthew Rodriguze RN; for sedation; 14:52:24 Procedure started. 14:52:25 Full Disclosure recording started 14:52:35 Defibrillator synced and charged to 275 Joules. 14:53:04 Shock delivered. 14:54:29 Patient cardioverted to sinus rhythm . 14:55:07 Procedure ended.(Physican Out) 14:56:48 Fluoroscopy time 00.00 minutes. 14:56:50 Fluoroscopy dose: 0 mGy 14:56:50 Flurop Dose total: 0 14:56:52 Contrast amount:Isovue 300 0ml. 14:57:19 Post-procedure physical assessment completed. ASA score P 3 - A patient with severe systemic disease as per Dimitri Lazo MD. 14:57:22 Post procedure rhythm: sinus rhythm 14:57:25 Estimated blood loss: 0 ml 14:57:27 Post procedure instruction explained to patient.Patient verbalizes understanding. 14:57:28 Patient needs reinforcement of post procedure teaching. 14:57:39 Procedure Complication : No complications 14:58:13 Procedure and supply charges have been captured, reviewed, submitted and are correct. 15:07:52 Vital chart was stopped 15:07:53 See physician's report for complete and final results. 15:07:55 Report given to PCU. 15:07:57 Patient transfered to PCU with Stretcher. 15:07:59 Procedure ended. 15:07:59 Full Disclosure recording stopped 15:08:02 End room use (Document Last) Device Usage Item Manufacture Quantity Catalog Hospital Part Current Minimal L ot# / Name Number Charge Number Stock Stock S erial# Code IV B. Schmitt 1 [id number] 5 CATHETER 22g [employer] 1 [id number] Combo Signature Audit [place] Stage Time Signature Unsigned Intra-Procedure 02/16/2018 Manish Valladares 3:09:02 PM RT(R) Signatures Monitor : Manish Valladares RT Signature : Date : Time : [place] [id number] [place] [address]
--- NOTE | ~2018-02-13 | OP ---
PATIENT NAME: ISA MCCARTHY MEDICAL RECORD: [id number] :38 LOCATION:D.M2 D.0 ADMISSION DATE:02/13/18 SURGEON: CATINA URIARTE MD DATE OF OPERATION: 02/16/2018 PROCEDURE: DC cardioversion. IV conscious sedation was performed with Versed and fentanyl. He received one shock at 275 joules, restoring sinus rhythm. OVERALL IMPRESSION: Successful DC cardioversion from atrial fibrillation to sinus rhythm. TRANSINT:[id number] Voice Confirmation ID: [id number] DOCUMENT ID: [id number] CATINA URIARTE MD at 1950 CC: [id number] DICTATION DATE: 02/16/18 1455 ADVERTISING DISPATCH CLERK: 02/16/18 1502 [place] [address]
--- NOTE | ~2018-02-13 | CN ---
PATIENT NAME:ISA MCCARTHY MEDICAL RECORD: [id number] : 38 LOCATION:D. D.2120 ADMIT DATE: 02/13/18 ACCOUNT: [id number] CONSULTING PHYSICIAN: MARIPOSA CHIANG MD REFERRING PHYSICIAN: SHIRAZ HERNANDES MD DATE OF CONSULTATION: 02/13/2018 CONSULT REQUESTING PHYSICIAN: Shiraz Hernandes MD REASON FOR CONSULTATION: Dyspnea on exertion, acute exacerbation of COPD, pulmonary nodule. HISTORY OF PRESENT ILLNESS: Mr. Mccarthy is a 77-year-old gentleman who is complaining of shortness of breath for the last 1 month according to the patient with shortness of breath with mild exertion and with activities of daily living. 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 The patient is in atrial fibrillation, but very well controlled, but found out the patient is anemic and admitted to the hospital. He does hear him still wheezing. There are no cough, no sputum production. Denies any chest pain. REVIEW OF SYSTEMS: As in history of present illness. PAST MEDICAL HISTORY: 1. Atrial fibrillation. 2. COPD. 3. Diabetes mellitus. 4. Depressive disorder. 5. Hypertension. 6. Obstructive sleep apnea. 7. Gastroesophageal reflux disease. PAST SURGICAL HISTORY: 1. He has carpal tunnel surgery. 2. Vasectomy. 3. Status post pacemaker placement. 4. Laminectomy. 5. Cardiac catheterization and stent placement. 6. Herniorrhaphy. 7. Carotid endarterectomy. 8. Right knee arthroscopic surgery. 9. Cholecystectomy. 10. Appendectomy. ALLERGIES: He is allergic to SULFA, MORPHINE, and DOXYCYCLINE. MEDICATIONS: On [place] [employer] is reviewed. He was on Xarelto. PERSONAL AND SOCIAL HISTORY: The patient is an ex-smoker. He quit in 1998, nondrinker. FAMILY HISTORY: Noncontributory. PHYSICAL EXAMINATION: GENERAL: Now, the patient is lying comfortably in bed. He is not in acute distress. CONSULT REPORT [id number] ISA MCCARTHY VITAL SIGNS: The blood pressure 133/59, pulse is 78, respiration is 18, temperature is 97.5, SpO2 is 94% on room air. HEENT: Conjunctivae are pale. Sclerae not icteric. NECK: Supple, no JVD. CHEST: There is wheeze on forceful expiration. HEART: Rate and rhythm irregular. Normal sound. No murmur. ABDOMEN: Soft, bowel sounds present. No hepatosplenomegaly. RECTAL: Deferred. EXTREMITIES: No cyanosis, no clubbing, no pedal edema. SKIN: Warm, normal turgor. CENTRAL NERVOUS SYSTEM: The patient is awake and alert. There are no obvious cranial nerve abnormalities. The gait was not tested. IMAGING: Chest radiograph, there is a questionable bilateral pleural effusion. There is a nodular density in the right lower lobe. OTHER LABORATORY DATA: CBC: WBC 10.6, hemoglobin 9, hematocrit 28.9, the platelet count is 389. Chemistry: Sodium 134, potassium 4.6, BUN is 29, creatinine 1.5. IMPRESSION: 1. Acute exacerbation of COPD. 2. Tracheobronchitis, rule out pneumonia. 3. Pulmonary nodule, rule out malignant process. 4. Dyspnea on exertion. 5. Anemia, possible GI bleed secondary to anticoagulation. 6. Atrial fibrillation. 7. Ex-smoker. RECOMMENDATION: 1. Agree with transfusion. 2. Start on Xopenex and ipratropium nebulizer. 3. Budesonide nebulizer. 4. Methylprednisolone IV. 5. Levaquin IV. 6. Check CT scan of the chest. 7. Follow up labs and chest radiograph. Dr. Hernandes, thank you for involving me in the care of Mr. Mccarthy. TRANSINT:[id number] Voice Confirmation ID: [id number] DOCUMENT ID: [id number] MARIPOSA CHIANG MD CC: [id number] DICTATION DATE: 02/13/18 1505 DIRECTOR OF CATH LAB: 02/13/18 1524 ADM IN [place] [id number] [place] [address]
[2018-02-13 12:28] LABS: BASOPHILS 0.4 % (0-2); EOSINOPHILS 0 % (0-7); HEMATOCRIT 28.9 % (42.0-54.0); IMMATURE GRANULOCYTES 4.6 % (0-5); MCHC 31.1 g/dL (31.0-37.0); MCV 77.1 fL (80.0-100.0); MEAN PLATELET VOLUME 9.3 fL (7.4-10.4); MONOCYTES 6.9 % (2-11); NEUTROPHILS 79.1 % (40-80); RBC 3.75 10x6/uL (4.20-6.10); WBC 10.6 10x3/uL (4.8-10.8)
[2018-02-13 12:31] LABS: PLATELET COUNT 389 10x3/uL (130-400)
[2018-02-13 12:42] LABS: % SATURATION 3 % (15-55); IRON 18 ug/dl (35-150); TOTAL IRON BIND CAPACITY 490 ug/dl (260-445)
[2018-02-13 12:46] LABS: UNSAT IRON BIND CAPACITY 472 ug/dl (150-375)
[2018-02-13 13:05] LABS: ALBUMIN 4.1 g/dL (3.4-5.0); ANION GAP 20.9 mmol/L (8-16); BILIRUBIN - TOTAL 0.86 mg/dL (0.2-1.3); CARBON DIOXIDE 18.7 mmol/L (21.0-32.0); CREATININE - SERUM 1.5 mg/dL (0.6-1.3); POTASSIUM - SERUM 4.6 mmol/L (3.5-5.1); PROTEIN - SERUM 8.1 g/dL (6.4-8.2)
[2018-02-13] MEDS ORDERED: GLUCOPHAGE1000 MG PO (13:28)
[2018-02-13] MEDS ORDERED: NORVASC5 MG PO (13:32)
[2018-02-13] MEDS ORDERED: PROTONIX40 MG PO (13:34)
[2018-02-13] MEDS ORDERED: FLOMAX0.4 MG PO (13:35)
[2018-02-13] MEDS ORDERED: ROBAXIN-750750 MG PO (13:38)
[2018-02-13 14:05] VITALS: BP 133/56; BMI 27.4
[2018-02-13 15:41] VITALS: BP 126/58
[2018-02-13 20:43] VITALS: BP 107/59
[2018-02-14 00:22] VITALS: BP 133/61
[2018-02-14 05:24] VITALS: BP 140/50
[2018-02-14 05:56] LABS: BASOPHILS 0.3 % (0-2); EOSINOPHILS 0.1 % (0-7); HEMOGLOBIN 10.5 g/dL (13.5-17.5); IMMATURE GRANULOCYTES 3.8 % (0-5); LYMPHOCYTES 14.7 % (15-50); MCH 24.4 pg (26.0-34.0); MCHC 31.8 g/dL (31.0-37.0); MCV 76.6 fL (80.0-100.0); MEAN PLATELET VOLUME 9.1 fL (7.4-10.4); MONOCYTES 8.9 % (2-11); NEUTROPHILS 72.2 % (40-80); RBC 4.31 10x6/uL (4.20-6.10); WBC 9.9 10x3/uL (4.8-10.8)
[2018-02-14 06:03] LABS: ANION GAP 16.8 mmol/L (8-16); CALCIUM 8.3 mg/dL (8.5-10.1); CREATININE - SERUM 1.3 mg/dL (0.6-1.3); MAGNESIUM - SERUM 1.2 mg/dL (1.8-2.4)
[2018-02-14 06:05] LABS: INR 1.22 (0.85-1.17); PROTIME 14.9 SECONDS (11.6-15.0)
[2018-02-14 06:06] LABS: POTASSIUM - SERUM 3.8 mmol/L (3.5-5.1)
[2018-02-14 06:30] LABS: PLATELET COUNT 283 10x3/uL (130-400)
[2018-02-14 07:45] VITALS: BP 138/50
[2018-02-14 09:17] LABS: FOLATE (FOLIC ACID) - SERUM 17.8 ng/mL (>3.0)
[2018-02-14 11:24] VITALS: BP 151/85
[2018-02-14 12:49] VITALS: BMI 27.3
[2018-02-14 15:38] VITALS: BP 132/64
[2018-02-14 20:43] VITALS: BP 141/67
[2018-02-15 05:25] LABS: BASOPHILS 0.2 % (0-2); EOSINOPHILS 0 % (0-7); HEMATOCRIT 30.3 % (42.0-54.0); HEMOGLOBIN 9.5 g/dL (13.5-17.5); IMMATURE GRANULOCYTES 2.7 % (0-5); LYMPHOCYTES 5.3 % (15-50); MCH 24.1 pg (26.0-34.0); MCHC 31.4 g/dL (31.0-37.0); MCV 76.7 fL (80.0-100.0); MEAN PLATELET VOLUME 9.3 fL (7.4-10.4); MONOCYTES 4.5 % (2-11); NEUTROPHILS 87.3 % (40-80); PLATELET COUNT 257 10x3/uL (130-400); RBC 3.95 10x6/uL (4.20-6.10); RDW 17.2 % (11.5-14.5); WBC 5.8 10x3/uL (4.8-10.8)
[2018-02-15 05:30] LABS: ANION GAP 18.1 mmol/L (8-16); CALCIUM 8.1 mg/dL (8.5-10.1); CARBON DIOXIDE 18.9 mmol/L (21.0-32.0); CREATININE - SERUM 1.5 mg/dL (0.6-1.3); MAGNESIUM - SERUM 1.3 mg/dL (1.8-2.4)
[2018-02-15 05:40] LABS: INR 1.26 (0.85-1.17); PROTIME 15.4 SECONDS (11.6-15.0)
[2018-02-15 06:33] VITALS: BP 119/66
[2018-02-15 11:17] VITALS: BP 143/64
[2018-02-15 15:26] VITALS: BP 121/61
[2018-02-16 06:23] VITALS: BP 127/83
[2018-02-16 06:33] LABS: HEMATOCRIT 32.1 % (42.0-54.0); HEMOGLOBIN 10.1 g/dL (13.5-17.5); LYMPHOCYTES 4.8 % (15-50); MCH 24.3 pg (26.0-34.0); MCHC 31.5 g/dL (31.0-37.0); MCV 77.2 fL (80.0-100.0); MEAN PLATELET VOLUME 8.8 fL (7.4-10.4); NEUTROPHILS 88.3 % (40-80); PLATELET COUNT 308 10x3/uL (130-400); RBC 4.16 10x6/uL (4.20-6.10)
[2018-02-16 06:35] LABS: WBC 13.1 10x3/uL (4.8-10.8)
[2018-02-16 06:44] LABS: ANION GAP 16.8 mmol/L (8-16); CALCIUM 8.4 mg/dL (8.5-10.1); CARBON DIOXIDE 21.1 mmol/L (21.0-32.0); CREATININE - SERUM 1.7 mg/dL (0.6-1.3); MAGNESIUM - SERUM 1.4 mg/dL (1.8-2.4); POTASSIUM - SERUM 3.9 mmol/L (3.5-5.1)
[2018-02-16 07:54] VITALS: BP 144/74
[2018-02-16 08:21] VITALS: Ht 168.9 cm; Wt 75.3 kg
[2018-02-16 11:04] VITALS: BP 131/85
[2018-02-16 20:39] VITALS: BP 133/75
[2018-02-17 04:00] VITALS: BP 140/70
[2018-02-17 04:37] LABS: BASOPHILS 0.1 % (0-2); EOSINOPHILS 0 % (0-7); HEMATOCRIT 33.2 % (42.0-54.0); HEMOGLOBIN 10.3 g/dL (13.5-17.5); IMMATURE GRANULOCYTES 0.7 % (0-5); MCV 77.2 fL (80.0-100.0); MEAN PLATELET VOLUME 9.2 fL (7.4-10.4); MONOCYTES 5.6 % (2-11); NEUTROPHILS 91.6 % (40-80); PLATELET COUNT 302 10x3/uL (130-400); RDW 17.8 % (11.5-14.5)
[2018-02-17 04:55] LABS: ALBUMIN 3.5 g/dL (3.4-5.0); ANION GAP 16.2 mmol/L (8-16); BILIRUBIN - TOTAL 0.91 mg/dL (0.2-1.3); CALCIUM 8.5 mg/dL (8.5-10.1); CARBON DIOXIDE 22.8 mmol/L (21.0-32.0); CREATININE - SERUM 1.8 mg/dL (0.6-1.3); MAGNESIUM - SERUM 1.7 mg/dL (1.8-2.4); PROTEIN - SERUM 7.3 g/dL (6.4-8.2)
[2018-02-17 08:07] VITALS: BP 124/64
[2018-02-17 10:54] VITALS: BP 148/58
[2018-02-17 15:11] VITALS: BP 119/64
[2018-02-17 20:00] VITALS: BP 103/55
[2018-02-18] VITALS: BP 130/77
[2018-02-18 04:00] VITALS: BP 122/78
[2018-02-18 05:42] LABS: ALBUMIN 3.3 g/dL (3.4-5.0); ANION GAP 16.4 mmol/L (8-16); BILIRUBIN - TOTAL 0.89 mg/dL (0.2-1.3); CALCIUM 8.8 mg/dL (8.5-10.1); CARBON DIOXIDE 24.2 mmol/L (21.0-32.0); CREATININE - SERUM 1.8 mg/dL (0.6-1.3); MAGNESIUM - SERUM 1.7 mg/dL (1.8-2.4); POTASSIUM - SERUM 4.6 mmol/L (3.5-5.1); PROTEIN - SERUM 6.8 g/dL (6.4-8.2)
[2018-02-18 05:44] LABS: BASOPHILS 0.1 % (0-2); EOSINOPHILS 0 % (0-7); HEMOGLOBIN 10.4 g/dL (13.5-17.5); IMMATURE GRANULOCYTES 1.4 % (0-5); LYMPHOCYTES 9.3 % (15-50); MCH 23.9 pg (26.0-34.0); MCHC 30.6 g/dL (31.0-37.0); MEAN PLATELET VOLUME 9.3 fL (7.4-10.4); MONOCYTES 9.5 % (2-11); NEUTROPHILS 79.7 % (40-80); PLATELET COUNT 262 10x3/uL (130-400); RBC 4.36 10x6/uL (4.20-6.10); WBC 14.6 10x3/uL (4.8-10.8)
[2018-02-18 06:00] VITALS: BP 102/64
[2018-02-18 20:00] VITALS: BP 125/84
[2018-02-19 00:07] VITALS: BP 121/73
[2018-02-19 05:11] LABS: ALBUMIN 3.2 g/dL (3.4-5.0); BILIRUBIN - TOTAL 0.95 mg/dL (0.2-1.3); CALCIUM 8.4 mg/dL (8.5-10.1); CARBON DIOXIDE 24.8 mmol/L (21.0-32.0); CREATININE - SERUM 1.5 mg/dL (0.6-1.3); PROTEIN - SERUM 6.6 g/dL (6.4-8.2); T4 THYROXIN - FREE 1.35 ng/dL (0.76-1.46); THYROID STIMULATING HORMONE 0.39 uIU/mL (0.36-3.74)
[2018-02-19 05:12] LABS: ANION GAP 17.1 mmol/L (8-16); POTASSIUM - SERUM 3.9 mmol/L (3.5-5.1)
[2018-02-19 08:31] VITALS: BP 118/68
[2018-02-19 11:13] VITALS: BP 123/60
[2018-02-19 14:53] VITALS: BP 122/65
[2018-02-19 18:20] LABS: APPEARANCE CLEAR (CLEAR); BILIRUBIN NEGATIVE (NEGATIVE); COLOR YELLOW (YELLOW); GLUCOSE NEGATIVE (NEGATIVE); KETONE NEGATIVE (NEGATIVE); NITRITE NEGATIVE (NEGATIVE); PROTEIN NEGATIVE (NEGATIVE); SPECIFIC GRAVITY 1.015 (1.005-1.020); UROBILINOGEN NORMAL (NORMAL)
[2018-02-19 22:07] VITALS: BP 113/64
[2018-02-20 06:19] LABS: BASOPHILS 0.2 % (0-2); EOSINOPHILS 0.1 % (0-7); HEMATOCRIT 35.6 % (42.0-54.0); HEMOGLOBIN 10.9 g/dL (13.5-17.5); IMMATURE GRANULOCYTES 1.5 % (0-5); LYMPHOCYTES 9.8 % (15-50); MCH 23.9 pg (26.0-34.0); MCHC 30.6 g/dL (31.0-37.0); MCV 78.1 fL (80.0-100.0); MEAN PLATELET VOLUME 9.2 fL (7.4-10.4); MONOCYTES 7.9 % (2-11); NEUTROPHILS 80.5 % (40-80); PLATELET COUNT 248 10x3/uL (130-400); RBC 4.56 10x6/uL (4.20-6.10); RDW 18.2 % (11.5-14.5); WBC 10.2 10x3/uL (4.8-10.8)
[2018-02-20 06:21] VITALS: BP 141/95
[2018-02-20 06:56] LABS: ALBUMIN 3.2 g/dL (3.4-5.0); ANION GAP 10.4 mmol/L (8-16); BILIRUBIN - TOTAL 0.9 mg/dL (0.2-1.3); CALCIUM 8.7 mg/dL (8.5-10.1); CREATININE - SERUM 1.6 mg/dL (0.6-1.3); POTASSIUM - SERUM 3.6 mmol/L (3.5-5.1); PROTEIN - SERUM 6.9 g/dL (6.4-8.2)
[2018-02-20 07:03] LABS: CARBON DIOXIDE 31.2 mmol/L (21.0-32.0)
[2018-02-20 07:48] VITALS: BP 141/95
[2018-02-20 10:42] VITALS: BP 123/66
[2018-02-20] MEDS ORDERED: PEPCID20 MG PO (14:50)
[2018-02-20] MEDS ORDERED: FERROUS SULFAT325 MG PO (14:50)
[2018-02-20] MEDS ORDERED: PREDNISONE20 MG PO (15:08)
[2018-02-20] MEDS ORDERED: FLOMAX0.4 MG PO (15:08)
[2018-02-20 15:45] VITALS: BP 104/79
[2018-02-20] MEDS ORDERED: ATROVENT 0.02%2.5 ML UPD (15:50)
== END 2018-02-20 17:07 | disposition home or self-care (01) | DRG 811 ==
LOC: D.M2 11:47 → D.SDCHOLD 13:27 → D.M2 13:27
PROVIDERS: Family Medicine; Internal Medicine Gastroenterology; Internal Medicine Nephrology; Internal Medicine Pulmonary Disease
PROC: 0DB78ZX Excision of Stomach, Pylorus, Via Natural or Artificial Opening Endoscopic, Diagnostic (ICD-10-PCS; 2018-02-15)
PROC: 0DB58ZX Excision of Esophagus, Via Natural or Artificial Opening Endoscopic, Diagnostic (ICD-10-PCS; 2018-02-15)
PROC: 0DB98ZX Excision of Duodenum, Via Natural or Artificial Opening Endoscopic, Diagnostic (ICD-10-PCS; principal; 2018-02-15 07:00)
DX: D50.9 Iron deficiency anemia, unspecified (principal); J18.9 Pneumonia, unspecified organism; I50.33 Acute on chronic diastolic (congestive) heart failure; K22.10 Ulcer of esophagus without bleeding; J44.0 Chronic obstructive pulmonary disease with (acute) lower respiratory infection; J44.1 Chronic obstructive pulmonary disease with (acute) exacerbation; K92.1 Melena; F05 Delirium due to known physiological condition; I11.0 Hypertensive heart disease with heart failure; K64.9 Unspecified hemorrhoids; F32.9 Major depressive disorder, single episode, unspecified; I48.91 Unspecified atrial fibrillation; K21.9 Gastro-esophageal reflux disease without esophagitis; G47.33 Obstructive sleep apnea (adult) (pediatric); E11.65 Type 2 diabetes mellitus with hyperglycemia; K29.60 Other gastritis without bleeding; K29.80 Duodenitis without bleeding; N40.0 Benign prostatic hyperplasia without lower urinary tract symptoms; E83.42 Hypomagnesemia; Z95.0 Presence of cardiac pacemaker; Z87.891 Personal history of nicotine dependence

== ENCOUNTER → 2018-03-15 08:32 | Outpatient (CLI) | payer MEDICARE, OTHER ==
[2018-02-16 08:21] VITALS: BMI 27.3
[~2018-03-15 08:32] MED LIST changes: +ATROVENT 0.02%2.5 ML UPD; +FERROUS SULFAT325 MG PO; +GLUCOPHAGE1000 MG PO; +NORVASC5 MG PO; +PEPCID20 MG PO; +PREDNISONE20 MG PO; +PROTONIX40 MG PO; +ROBAXIN-750750 MG PO
== END | disposition home or self-care (01) ==
LOC: D.RT 08:32
DX: J44.9 Chronic obstructive pulmonary disease, unspecified (principal)

== ENCOUNTER → 2019-03-22 08:22 | Outpatient (CLI) | payer MEDICARE, BC ==
[2018-02-16 08:21] VITALS: BMI 27.3
== END | disposition home or self-care (01) ==
LOC: D.CT 08:22
PROVIDERS: ATTEND Internal Medicine Pulmonary Disease
DX: J90 Pleural effusion, not elsewhere classified (principal)